=== PATIENT | female | born 1995 | race Asian ===

== ENCOUNTER 2021-11-02 09:42 | Emergency (ER) | payer BC ==
[2021-11-02 11:29] LABS: #Eosinphils 0.1 10x3/uL (0.0-0.5); #Monocytes 0.3 10x3/uL (0.0-1.1); #Neutrophils 1.8 10x3/uL (1.5-8.4); %Basophils 0.8 % (0.0-2.0); %Eosinophils 1.4 % (0.0-6.0); %Lymphocytes 39.5 % (18.0-47.0); %Monocytes 8.2 % (0.0-10.0); %Neutrophils 49.8 % (40.0-75.0); Hemoglobin 11.5 g/dL (12.0-15.5); Mean Corpuscular HGB CONC 33.6 g/dL (32.0-36.0); Mean Corpuscular Hemoglobin 29.9 pg (27.0-33.0); Mean Corpuscular Volume 88.8 fl (81.6-98.3); Mean Platelet Volume 12.2 fl (7.4-10.4); Platelet Count 120 10x3/uL (150-450); Red Blood Cell (RBC) Count 3.85 10x6/uL (3.90-5.03); White Blood Cell (WBC) Count 3.7 10x3/uL (3.5-10.5)
[2021-11-02 11:40] LABS: ALT (SGPT) 48 U/L (8-55); AST (SGOT) 40 U/L (5-34); Albumin 4.1 g/dL (3.5-5.0); Alkaline Phosphatase 118 U/L (40-110); Anion Gap 13 mmol/L (10-20); BUN (Urea Nitrogen) 10 mg/dL (7.0-18.7); Bilirubin, Total 0.9 mg/dL (0.2-1.2); Calc. Creatinine Clearance 0 mL/min (70-130); Calcium 8.9 mg/dL (7.8-10.44); Carbon Dioxide 23 mmol/L (22-29); Chloride 105 mmol/L (98-107); Estimated GFR 103; Globulin 2.7 g/dL (2.4-3.5); Glucose 93 mg/dL (70-105); Potassium 3.9 mmol/L (3.5-5.1); Protein, Total 6.8 g/dL (6.0-8.3); Sodium 137 mmol/L (136-145)
[2021-11-02 11:57] LABS: HCG, Total Quant Less than 1.20 mIU/mL (See Ranges); Thyroid Stimulating Hormone 1.4453 uIU/mL (0.35-4.94)
== END 2021-11-02 12:45 | disposition home or self-care (01) ==
LOC: CSHERS 09:42
DX: F41.9 Anxiety disorder, unspecified (principal); I10 Essential (primary) hypertension
CPT/HCPCS: 80053; 84443; 84484; 84702; 85025; 93005

== ENCOUNTER 2022-01-30 10:05 | Outpatient (CLI) | payer BC | END 2022-01-30 10:06 | disposition home or self-care (01) | LOC: CSHMAMMO 10:05 | PROVIDERS: ATTEND Internal Medicine Transplant Hepatology | DX: Z13.820 Encounter for screening for osteoporosis (principal); Q44.7 Other congenital malformations of liver; M85.89 Other specified disorders of bone density and structure, multiple sites | CPT/HCPCS: 77080 ==

== ENCOUNTER 2022-03-05 08:51 | Outpatient (CLI) | payer BC | END 2022-03-05 08:52 | disposition home or self-care (01) | LOC: CSHMRI 08:51 | PROVIDERS: ATTEND Radiology Vascular & Interventional Radiology | DX: I67.1 Cerebral aneurysm, nonruptured (principal) | CPT/HCPCS: 70544; 70547 ==